=== PATIENT | male | born 1940 ===

== ENCOUNTER 2021-12-11 11:08 | Inpatient (IN) ==
[2021-12-11] MEDS ORDERED: NS 0.9% 1000 ml BAG 1,000 ML IV ONE (12:13)
[2021-12-11 12:14] LABS: ABS Lymphocytes 0.5 10^3/ul (1.0-4.8); ABS Monocytes 0.9 10^3/ul (0-0.8); Hematocrit 46 % (42-52); Hemoglobin 15.7 g/dL (14.0-18.0); Lymphocyte % 3.3 %; Mean Corpuscular HGB Conc 34 g/dL (31-36); Mean Corpuscular Hemoglobin 30 pg (27-31); Mean Corpuscular Volume 87 fL (80-94); Mean Platelet Volume 7.2 fL (7.4-10.4); Platelet Count 228 10^3/uL (150-450); Red Blood Count 5.27 10^6 /uL (4.18-5.48); Red Cell Distribution Width 13 % (10-15); White Blood Count 14.5 10^3/uL (3.5-10.8)
[2021-12-11 12:22] LABS: Rapid COVID-19 Molecular Detected (Undetected)
[2021-12-11 12:24] LABS: Activated Partial Thrombo Time 29.2 seconds (26.0-38.0); INR 2.15 (0.86-1.15)
[2021-12-11 12:32] LABS: ALT 26 U/L (7-52); AST 51 U/L (13-39); Albumin 3.7 g/dL (3.2-5.2); Alkaline Phosphatase 93 U/L (35-149); Anion Gap 17 mmol/L (2-11); Blood Urea Nitrogen 52 mg/dL (6-24); CO2 Carbon Dioxide 23 mmol/L (22-32); Calcium 9.3 mg/dL (8.6-10.3); Chloride 101 mmol/L (101-111); Globulin 3.6 g/dL (2-4); Glucose 280 mg/dL (70-100); Potassium 3.2 mmol/L (3.5-5.0); Sodium 141 mmol/L (135-145); Total Protein 7.3 g/dL (6.4-8.9); eGFR CKD-EPI 40.4 (>60)
[2021-12-11 12:36] LABS: Troponin I 0.16 ng/mL (<0.03)
[2021-12-11] MEDS ORDERED: Potassium Chlor 20 meq TAB.ER PO ONE (13:04)
[2021-12-11] MEDS ORDERED: Azithromycin 500 mg/250 ml NS 500 MG/250 ML BAG IVPB ONE (14:06)
[2021-12-11] MEDS ORDERED: cefTRIAXone 1 gm/50 mL NS BAG 1 GM/50 ML BAG IV ONE (14:06)
[2021-12-11] MEDS ORDERED: Dextrose 50% Syringe 50 ml 25 GM/50 ML SYRINGE IV PUSH PRN (15:48)
[2021-12-11] MEDS ORDERED: Remdesivir 100 mg Vial 200 MG in NS 0.9% 250 ml 210 ML IV ONE (16:18)
[2021-12-11 16:21] LABS: Magnesium 2.2 mg/dL (1.9-2.7); Phosphorus 3.4 mg/dL (2.5-5.0)
[2021-12-11] MEDS ORDERED: Lactated Ringers 1000 ml BAG 500 ML IV ONE (18:08)
[2021-12-11 22:16] LABS: Troponin I 0.62 ng/mL (<0.03)
[2021-12-12 04:53] LABS: ABS Lymphocytes 0.9 10^3/ul (1.0-4.8); ABS Monocytes 0.6 10^3/ul (0-0.8); ABS Neutrophils 10.1 10^3/ul (1.5-7.7); ABS Nucleated RBC 0.1 10^3/ul; Eosinophil % 0.2 %; Hematocrit 43 % (42-52); Hemoglobin 14.7 g/dL (14.0-18.0); Lymphocyte % 7.7 %; Mean Corpuscular HGB Conc 34 g/dL (31-36); Mean Corpuscular Hemoglobin 30 pg (27-31); Mean Corpuscular Volume 87 fL (80-94); Nucleated Red Blood Cells % 0.7; Platelet Count 121 10^3/uL (150-450); Red Cell Distribution Width 14 % (10-15); White Blood Count 11.6 10^3/uL (3.5-10.8)
[2021-12-12 05:10] LABS: ALT 29 U/L (7-52); AST 68 U/L (13-39); Albumin 3.1 g/dL (3.2-5.2); Alkaline Phosphatase 91 U/L (35-149); Anion Gap 9 mmol/L (2-11); Blood Urea Nitrogen 47 mg/dL (6-24); CO2 Carbon Dioxide 27 mmol/L (22-32); Calcium 8.4 mg/dL (8.6-10.3); Chloride 106 mmol/L (101-111); Globulin 3.1 g/dL (2-4); Glucose 145 mg/dL (70-100); Potassium 2.9 mmol/L (3.5-5.0); Sodium 142 mmol/L (135-145); Total Protein 6.2 g/dL (6.4-8.9); eGFR CKD-EPI 51.2 (>60)
[2021-12-12 05:15] LABS: Troponin I 0.68 ng/mL (<0.03)
[2021-12-12] MEDS: Potassium Chlor 20 meq TAB.ER PO SCH ×3 (05:43→07:47)
[2021-12-12 07:07] LABS: INR 2.3 (0.86-1.15)
[2021-12-12] MEDS ORDERED: Potassium Chlor 20 meq TAB.ER PO ONE ×2 (08:38→10:00)
[2021-12-12] MEDS: Dexamethasone IV 4 MG/ML VIAL 1 ml VIAL IV SLOW PU SCH (08:55)
[2021-12-12 08:58] LABS: Magnesium 1.8 mg/dL (1.9-2.7); Phosphorus 2.7 mg/dL (2.5-5.0)
[2021-12-12] MEDS ORDERED: Magnesium Sulfate 2 gm BAG 2 GM/50 ML BAG IVPB ONE (09:53)
[2021-12-12] MEDS ORDERED: Phytonadione SUBCUT/IM Adult 10 MG/ML AMP (IM or SQ not preferred route) IM ONE (10:00)
[2021-12-12] MEDS ORDERED: NS 0.9% 500 ml BAG 500 ML IV ONE (10:04)
[2021-12-12] MEDS ORDERED: Phytonadione IV (Adult) 5 MG in NS 0.9% 50 ML 50 ML IV ONE (11:00)
[2021-12-12 12:49] LABS: Troponin I 0.38 ng/mL (<0.03)
[2021-12-12] MEDS ORDERED: Metoprolol Tartrate 5 mg VIAL 5 ml VIAL (1 mg/ml) IV PRN (13:21)
[2021-12-12 14:12] LABS: PCO2 Arterial 29 mmHg (35-45); PO2 Arterial 60 mmHg (80-100)
[2021-12-12] MEDS ORDERED: Haloperidol 5 mg/ml SDV IV/IM 5 MG/ML AMP IV SLOW PU ONE (14:15)
[2021-12-12] MEDS ORDERED: Haloperidol 5 mg/ml SDV IV/IM 5 MG/ML AMP ONE (14:22)
[2021-12-12] MEDS ORDERED: Dexmedetomidine 1,000 MCG in NS 0.9% 250 ml 240 ML IV SCH (15:00)
[2021-12-12] MEDS: cefTRIAXone 1 gm/50 mL NS BAG 1 GM/50 ML BAG IVPB SCH (15:32)
[2021-12-12 16:20] LABS: C Reactive Protein 167.41 mg/L (<8.01)
[2021-12-12] MEDS ORDERED: Lorazepam PYXIS KEY PRN (21:39)
[2021-12-12] MEDS ORDERED: Furosemide 20 mg/2 ml IV VIAL IV SLOW PU ONE (21:40)
[2021-12-12] MEDS ORDERED: LORazepam 2 mg VIAL 1 ml IV PUSH ONE (21:40)
[2021-12-12] MEDS: Remdesivir 100 mg Vial 100 MG in NS 0.9% 250 ml 230 ML IV SCH (22:26)
[2021-12-12 23:17] LABS: PCO2 Arterial 33 mmHg (35-45); PO2 Arterial 138 mmHg (80-100)
[2021-12-13 05:15] LABS: INR 1.92 (0.86-1.15)
[2021-12-13 05:18] LABS: ABS Lymphocytes 0.8 10^3/ul (1.0-4.8); ABS Monocytes 0.5 10^3/ul (0-0.8); ABS Neutrophils 9.4 10^3/ul (1.5-7.7); Eosinophil % 0.2 %; Hematocrit 44 % (42-52); Hemoglobin 14.8 g/dL (14.0-18.0); Lymphocyte % 7.2 %; Mean Corpuscular HGB Conc 34 g/dL (31-36); Mean Corpuscular Hemoglobin 32 pg (27-31); Mean Corpuscular Volume 96 fL (80-94); Mean Platelet Volume 8.6 fL (7.4-10.4); Platelet Count 77 10^3/uL (150-450); Red Blood Count 4.57 10^6 /uL (4.18-5.48); Red Cell Distribution Width 14 % (10-15); White Blood Count 10.7 10^3/uL (3.5-10.8)
[2021-12-13 05:24] LABS: ALT 25 U/L (7-52); Albumin 2.7 g/dL (3.2-5.2); Albumin/Globulin Ratio 0.9 (1-3); Alkaline Phosphatase 114 U/L (35-149); Blood Urea Nitrogen 62 mg/dL (6-24); CO2 Carbon Dioxide 20 mmol/L (22-32); Globulin 2.9 g/dL (2-4); Glucose 196 mg/dL (70-100); Magnesium 2.4 mg/dL (1.9-2.7); Sodium 142 mmol/L (135-145); Total Protein 5.6 g/dL (6.4-8.9); eGFR CKD-EPI 42.5 (>60)
[2021-12-13 05:39] LABS: Chloride 112 mmol/L (101-111)
[2021-12-13 05:46] LABS: Anion Gap 10 mmol/L (2-11)
[2021-12-13 07:45] LABS: Phosphorus 4.6 mg/dL (2.5-5.0)
[2021-12-13] MEDS: Dexamethasone IV 4 MG/ML VIAL 1 ml VIAL IV SLOW PU SCH (08:29)
[2021-12-13] MEDS ORDERED: Furosemide 20 mg/2 ml IV VIAL IV ONE (11:29)
[2021-12-13] MEDS ORDERED: Lorazepam PYXIS KEY PRN (13:29)
[2021-12-13] MEDS: LORazepam 2 mg VIAL 1 ml IV PUSH ONE ×2 (14:45→15:24)
[2021-12-13] MEDS: cefTRIAXone 1 gm/50 mL NS BAG 1 GM/50 ML BAG IVPB SCH (16:42)
[2021-12-13] MEDS: Remdesivir 100 mg Vial 100 MG in NS 0.9% 250 ml 230 ML IV SCH (21:31)
[2021-12-14 04:58] LABS: Hematocrit 46 % (42-52); Hemoglobin 15.2 g/dL (14.0-18.0); Mean Corpuscular HGB Conc 33 g/dL (31-36); Mean Corpuscular Hemoglobin 29 pg (27-31); Mean Corpuscular Volume 88 fL (80-94); Mean Platelet Volume 8.5 fL (7.4-10.4); Platelet Count 78 10^3/uL (150-450); Red Blood Count 5.21 10^6 /uL (4.18-5.48); Red Cell Distribution Width 14 % (10-15); White Blood Count 23.5 10^3/uL (3.5-10.8)
[2021-12-14 05:00] LABS: INR 1.76 (0.86-1.15)
[2021-12-14 05:12] LABS: Albumin 3.2 g/dL (3.2-5.2); Albumin/Globulin Ratio 1.1 (1-3); Calcium 8.7 mg/dL (8.6-10.3); Potassium 3.9 mmol/L (3.5-5.0); Total Bilirubin 0.9 mg/dL (0.2-1.0); Total Protein 6.2 g/dL (6.4-8.9); eGFR CKD-EPI 38.2 (>60)
[2021-12-14 05:21] LABS: ABS Lymphocytes 0.8 10^3/ul (1.0-4.8); ABS Monocytes 1.2 10^3/ul (0-0.8); ABS Neutrophils 21.4 10^3/ul (1.5-7.7); Eosinophil % 0.1 %; Lymphocyte % 3.4 %
[2021-12-14 07:33] LABS: PCO2 Arterial 26 mmHg (35-45); PO2 Arterial 76 mmHg (80-100)
[2021-12-14] MEDS: Dexamethasone IV 4 MG/ML VIAL 1 ml VIAL IV SLOW PU SCH (09:42)
[2021-12-14 10:14] VITALS: BP 89/76
[2021-12-14] MEDS ORDERED: Morphine 2 MG/ML SYRINGE IV PRN (10:59)
[2021-12-14] MEDS ORDERED: Morphine 2 MG/ML SYRINGE ONE (11:03)
[2021-12-14] MEDS ORDERED: Morphine 10 MG/ML VIAL (1 ml) ONE (11:10)
[2021-12-14] MEDS ORDERED: Lorazepam PYXIS KEY ONE (11:11)
[2021-12-14] MEDS ORDERED: LORazepam 2 mg VIAL 1 ml ONE (11:12)
[2021-12-14] MEDS ORDERED: Lorazepam PYXIS KEY PRN (11:14)
[2021-12-14] MEDS: Morphine 2 MG/ML SYRINGE IV PRN ×3 (11:58→15:11)
[2021-12-14] MEDS: LORazepam 2 mg VIAL 1 ml IV PUSH PRN ×3 (11:59→16:50)
== END 2021-12-14 17:43 | disposition expired | DRG 871 ==
LOC: ED 11:08 → EDHOLD 15:32 → ICU 20:46
PROVIDERS: ADMIT Internal Medicine; ATTEND Surgery Surgical Critical Care